=== PATIENT | female | born 1950 | race Two or more races ===

== ENCOUNTER 2018-03-27 09:45 | Day surgery (SDC) | payer OTHER ==
[~2018-03-27 09:45] MED LIST: CEFAZOLIN 1 GM INJ
[2018-03-27] MEDS: SOD CHLORIDE 0.9% 1,000 ML IV (10:10)
[2018-03-27] MEDS ORDERED: CEFAZOLIN 1 GM/50 ML (PMX) 50 ML IVPB (12:30)
[2018-03-27] MEDS ORDERED: METOCLOPRAMIDE 10 MG INJ (14:22)
[2018-03-27] MEDS ORDERED: MIDAZOLAM 1 MG/ML 2 ML INJ (14:22)
[2018-03-27] MEDS ORDERED: ROPIVACAINE 0.5 % 30 ML VIAL (14:23)
[2018-03-27] MEDS ORDERED: ROPIVACAINE 0.2% 20 ML VIAL (14:26)
[2018-03-27] MEDS ORDERED: NEOSTIGMINE 3 MG/3 ML SYRINGE (15:06)
[2018-03-27] MEDS ORDERED: ROCURONIUM 50 MG INJ (15:06)
[2018-03-27] MEDS ORDERED: EPHEDrine 25 MG/5 ML SYG (15:06)
[2018-03-27] MEDS ORDERED: GLYCOPYRROLATE 0.4 MG INJ (15:06)
[2018-03-27] MEDS ORDERED: PROPOFOL 20 ML (15:06)
[2018-03-27] MEDS ORDERED: ACETAMINOPHEN 1000MG/100ML IV 100 ML (15:09)
[2018-03-27] MEDS ORDERED: ONDANSETRON 4 MG INJ (15:26)
[2018-03-27] MEDS ORDERED: hydrALAzine 20 MG INJ IV (15:30)
[2018-03-27] MEDS ORDERED: OXYCODONE/ACETAMINOPHEN (5/325) TAB PO ×2 (15:30)
[2018-03-27] MEDS ORDERED: HYDROmorphONE 1 MG/5 ML IV SYRINGE IV ×2 (15:30)
[2018-03-27] MEDS ORDERED: LABETALOL HCL 20MG INJ IV (15:30)
[2018-03-27] MEDS ORDERED: DIPHENHYDRAMINE 50 MG INJ IV (15:30)
[2018-03-27] MEDS ORDERED: FENTAnyl 50 MCG/ML VIAL (15:34)
[2018-03-27] MEDS: MEPERIDINE 25 MG INJ IV (15:58)
[2018-03-27] MEDS: ONDANSETRON 4 MG INJ IV (15:59)
[2018-03-27] MEDS: HYDROmorphONE 1 MG/5 ML IV SYRINGE IV (16:06)
== END 2018-03-27 17:41 | disposition home or self-care (01) ==
LOC: SDS 09:45
DX: K80.10 Calculus of gallbladder with chronic cholecystitis without obstruction (principal); I10 Essential (primary) hypertension; E66.9 Obesity, unspecified; Z68.31 Body mass index [BMI] 31.0-31.9, adult
CPT/HCPCS: 47562; 88304